=== PATIENT | male | born 1945 | race Caucasian/White ===

== ENCOUNTER → 2023-09-22 13:10 | Outpatient (CLI) | payer OTHER, SELFPAY ==
[2023-09-22 15:49] LABS: Free T3, Triiodothyronine Free 3.55 pg/mL (2.77-5.27); Free T4, Direct Thyroxine 0.69 ng/dL (0.78-2.19)
[2023-09-22 16:03] LABS: Thyroid Stimulating Hormone 0.327 uIU/mL (0.47-4.68)
== END ==
PROVIDERS: Referring Provider Chiropractor; Visit Provider Chiropractor
DX: E04.9 Nontoxic goiter, unspecified (principal)
CPT/HCPCS: 36415; 84439; 84443; 84481